=== PATIENT | female | born 1945 | race Caucasian/White ===

== ENCOUNTER 2017-06-11 23:21 | Emergency (ER) | payer BC, MEDICARE ==
[2017-06-11] MEDS ORDERED: HYDROXYZINE PAMOATE 25 MG CAPSULE PO ONE (23:45)
[2017-06-11] MEDS ORDERED: METHYLPREDNISOLONE PF 125MG/VIAL IM ONE (23:45)
--- NOTE | 2017-06-11 23:50 | Emergency Department Record ---
History of Present Illness - General Chief complaint: Pain Stated complaint: CHRONIC FACIAL BURNING Time Seen by Provider: 06/11/17 23:24 Source: Patient Mode of Arrival: Ambulatory Limitations: No limitations - History of Present Illness Initial comments: 72 yo female presents to ED for evaluation of worsening facial redness and "flaking" for the past several days. Patient reports worsening "burning" symptoms for the past several days. Patient reports that her symptoms have been present for approximately 6 years, has seen 3 dermatologists that have not identified a cause for her symptoms. Patient was recently prescribed a prednisone taper and benadryl for her symptoms, but patient stopped her medications 1-2 days ago. MD Complaint: Other (facial pain) Onset/Timin -: Days(s) History of Same: Yes Radiation: None Severity scale (1-10): 10 Quality: Burning, Other Consistency: Constant Improves with: Nothing Worsens with: Nothing Associated Symptoms: Denies other symptoms - Related Data Home Medications Medication Instructions Recorded Confirmed Last Taken Clonidine HCl [Clonidine HCl] 06/11/17 06/11/17 Unknown Fenofibrate Nanocrystallized 06/11/17 Unknown [Triglide] Lorazepam [Ativan] 1 mg PO 06/11/17 Unknown Prednisone [Prednisone 10Mg] 06/11/17 Unknown Previous Rx's Medication Instructions Recorded Hydroxyzine Pamoate [Vistaril] 50 mg PO Q6H PRN #30 capsule 06/11/17 Prednisone [Prednisone 20Mg] 20 mg PO TID #15 tab 06/11/17 Allergies Allergy/AdvReac Type Severity Reaction Status Date / Time No Known Drug Allergies Allergy Verified 06/11/17 23:33 Travel Screening - Travel/Exposure Within Last 30 Days Have you traveled within the last 30 days?: No - Travel/Exposure Within Last Year Have you traveled outside the [place] in the last year?: No - Additonal Travel Details Have you been exposed to anyone with a communicable illness?: No - Travel Symptoms Symptom Screening: None Review of Systems Constitutional: Denies: Chills, Fever, Malaise, Night sweats Eyes: Denies: Eye discharge, Eye pain ENT: Denies: Congestion, Ear pain, Epistaxis Respiratory: Denies: Cough, Dyspnea Cardiovascular: Denies: Chest pain, Dyspnea on exertion Endocrine: Denies: Fatigue, Heat or cold intolerance Gastrointestinal: Denies: Abdominal pain, Nausea, Vomiting Genitourinary: Denies: Incontinence, Retention Musculoskeletal: Denies: Arthralgia, Back pain, Gout, Joint swelling Skin: Reports: Rash. Denies: Bruising, Change in color Neurological: Denies: Abnormal gait, Confusion, Headache, Seizure Psychiatric: Denies: Anxiety Hematological/Lymphatic: Denies: Anemia, Blood Clots Past Medical History - SOCIAL HISTORY Smoking Status: Never smoker Alcohol Use: Rare Drug Use: None - RESPIRATORY Hx Respiratory Disorders: No - CARDIOVASCULAR Hx Cardio Disorders: No - NEURO Hx Neuro Disorders: No - GI Hx GI Disorders: No - Hx Genitourinary Disorders: No - ENDOCRINE Hx Endocrine Disorders: No - MUSCULOSKELETAL Hx Musculoskeletal Disorders: No - PSYCH Hx Psych Problems: No - HEMATOLOGY/ONCOLOGY Hx Hematology/Oncology Disorders: Yes Hx Cancer: Yes (lung 2010) Family Medical History Any Significant Family History?: No Physical Exam - General General Appearance: Alert, Oriented x3, Cooperative, Mild distress Limitations: No limitations - Head Head exam: Atraumatic, Normocephalic, Other (Erythema and exfoliation of the facial skin on examination extending down the proximal chest wall) Head exam detail: negative: Abrasion, Contusion, Duran's sign, General tenderness, Hematoma, Laceration - Eye Eye exam: Normal appearance. negative: Conjunctival injection, Periorbital swelling, Periorbital tenderness, Scleral icterus - ENT Ear exam: negative: Auricular hematoma, Auricular trauma Nasal Exam: negative: Active bleeding, Discharge, Dried blood, Foreign body Mouth exam: negative: Drooling, Laceration, Muffled voice, Tongue elevation - Neck Neck exam: Normal inspection. negative: Meningismus, Tenderness - Respiratory Respiratory exam: Normal lung sounds bilaterally. negative: Rales, Respiratory distress, Rhonchi, Stridor - Cardiovascular Cardiovascular Exam: Regular rate, Normal rhythm, Normal heart sounds - GI/Abdominal GI/Abdominal exam: Soft. negative: Rebound, Rigid, Tenderness - Rectal Rectal exam: Deferred - exam: Deferred - Extremities Extremities exam: Normal inspection. negative: Calf tenderness, Pedal edema, Tenderness - Back Back exam: Denies: CVA tenderness (R), CVA tenderness (L) - Neurological Neurological exam: Alert, Normal gait, Oriented X3 - Psychiatric Psychiatric exam: Normal affect, Normal mood - Skin Skin exam: Erythema Type of lesion: negative: abrasion Distribution of rash: Face, Neck Description of rash: Confluent, Erythematous Course Vital Signs 06/11/17 23:31 Temperature 99.3 F Pulse Rate [ 95 H Pulse Ox Probe] Respiratory 24 Rate Blood Pressure 156/101 [Left Arm] Pulse Ox 96 Disposition Disposition: Discharge Clinical Impression: Chronic dermatitis Disposition: Home, Self-Care Condition: (2) Stable Instructions: Dyshidrotic Eczema (ED), Dermatitis (ED) Additional Instructions: Return to ED if your symptoms worsen or if you have any concerns. Prednisone and Vistaril as directed Follow-up with Dr. Hopson as scheduled in 3 days.. Prescriptions: Hydroxyzine Pamoate [Vistaril] 50 mg PO Q6H PRN #30 capsule PRN Reason: Itch/Hives Prednisone [Prednisone 20Mg] 20 mg PO TID #15 tab Forms: Patient Portal Access Time of Disposition: 23:50 Quality - Quality Measures Quality Measures: N/A - Blood Pressure Screening Does Patient Have Any of the Following: Active Dx of HTN Blood Pressure Classification: Hypertensive Reading Systolic Measurement: 156 Diastolic Measurement: 101 Screening for High Blood Pressure: Patient Exclusion, Hx of HTN [G9744]
== END 2017-06-12 00:10 | disposition home or self-care (01) ==
LOC: ER 23:21
DX: L30.8 Other specified dermatitis (principal)
CPT/HCPCS: 96372; 99283; J2930